=== PATIENT | male | born 1930 | race Caucasian/White ===

== ENCOUNTER 2019-11-15 08:29 | Day surgery (SDC) | payer MEDICARE, BC ==
[~2019-11-15] VITALS: Ht 175.3 cm; Wt 74.1 kg
[2019-11-15] VITALS (8 sets, daily range): BP systolic 135–152; BP diastolic 66–77
[2019-11-15] MEDS ORDERED: MULT-453 (09:41)
[2019-11-15] MEDS ORDERED: MONT10TA21 PO (09:41)
[2019-11-15] MEDS ORDERED: ATOR10TA87 PO (09:41)
[2019-11-15] MEDS ORDERED: FURO40TA4 PO (09:41)
[2019-11-15] MEDS ORDERED: FLUT1BLS10 (09:41)
[2019-11-15] MEDS ORDERED: AMLO5TAB PO (09:41)
[2019-11-15] MEDS ORDERED: TIOT18CA3 (09:41)
[2019-11-15] MEDS ORDERED: APIX5TAB3 PO (09:41)
[2019-11-15] MEDS ORDERED: CALC-891 PO (09:41)
== END 2019-11-15 11:45 | disposition home or self-care (01) ==
LOC: SSTAY O 08:29 → MED 3N 08:43 → SSTAY O 11:45
PROVIDERS: ATTEND Radiology Vascular & Interventional Radiology
DX: J90 Pleural effusion, not elsewhere classified (principal); J94.2 Hemothorax; J44.9 Chronic obstructive pulmonary disease, unspecified; I10 Essential (primary) hypertension; I48.91 Unspecified atrial fibrillation; Z79.899 Other long term (current) drug therapy; Z88.2 Allergy status to sulfonamides; Z98.49 Cataract extraction status, unspecified eye; Z98.890 Other specified postprocedural states; Z98.1 Arthrodesis status; Z90.49 Acquired absence of other specified parts of digestive tract
CPT/HCPCS: 32555; 71045; C1729